=== PATIENT | female | born 1995 | race Two or more races ===

== ENCOUNTER 2022-03-23 02:46 | Emergency (ER) | payer SELFPAY ==
[~2022-03-23] VITALS: Ht 152.4 cm; Wt 58.0 kg
[2022-03-23] MEDS ORDERED: KETOROLAC 60MG/2ML VIAL IM ONE (03:45)
[2022-03-23 03:50] VITALS: BP 126/82
[2022-03-23] MEDS ORDERED: LIDO1ADH5 TP (04:20)
[2022-03-23] MEDS ORDERED: NAPR-681 MT (04:20)
== END 2022-03-23 04:29 | disposition home or self-care (01) ==
LOC: ER 02:46 → EDSEX 02:46 → ER 04:29
DX: R07.89 Other chest pain (principal)
CPT/HCPCS: 71045; 93005; 96372; 99283; J1885